=== PATIENT | male | born 1960 | race Caucasian/White ===

== ENCOUNTER → 2020-03-26 | Outpatient (CLI) | payer OTHER, BC ==
[~2020-03-26] MED LIST: CENTRUM SILVER1 EAC2 PO; CLONAZEPAM 1 MG1 M1 PO; COUMADIN 4 MG TA4 M1 PO; DULCOLAX5 MG PO; FENOFIBRATE160 MG PO; FISH OIL 1,2001 EAC4 PO; FLOMAX0.4 MG PO; HCTZ PO; LEVOTHROID150 MC1 PO; LIPITOR40 MG PO; METHADONE PO; METHADONE10 MG/1 M2 PO; MYRBETRIQ25 MG PO; NASACORT10.8 ML NASAL; NORVASC10 MG PO; OSTEO BI-FLEX1 EAC1 PO; PROBIOTIC1 EAC1 PO; PROSCAR 5MG TABL5 MG PO; SYNTHROID137 MC1 PO; TRAMADOL 50 MG50 MG PO; TRAZODONE HCL100 MG PO; VITAMIN B-625 MG PO
== END ==
LOC: LAB
PROVIDERS: ATTEND Student in an Organized Health Care Education/Training Program
DX: Z01.812 Encounter for preprocedural laboratory examination (principal); Z20.828 Contact with and (suspected) exposure to other viral communicable diseases

== ENCOUNTER 2020-03-28 07:13 | Day surgery (SDC) | payer OTHER, BC ==
[~2020-03-28] VITALS: Ht 175.3 cm; Wt 79.4 kg
--- NOTE | ~2020-03-28 | O ---
[address] [address] OPERATIVE REPORT Name: FERMIN CALDERON Room #: DEP [facility].#: [id number] Admission: 03/28/20 Attend Phys: Mikel Delgadillo MD Discharge: 03/28/20 Date of : 56 Report #: [id number] THIS REPORT FOR: cc: ZAIDA MUNOZ Physician not on staff Mikel Delgadillo MD ~ CC: Mikel Delgadillo Physician staff ZAIDA MUNOZ DATE OF SERVICE: 03/28/2020 SERVICE: Orthopedics. FACILITY: [place]. SURGEON: Mikel Delgadillo MD TITLE I COORDINATOR: Clarita Mina NP. INDICATION FOR TITLE I COORDINATOR: Extremity positioning, assistance with the arthroscope positioning. PREOPERATIVE DIAGNOSES: 1. Right hip pain. 2. Right hip ischiofemoral impingement. 3. Right hip chondromalacia. POSTOPERATIVE DIAGNOSES: 1. Right hip pain. 2. Right hip ischiofemoral impingement. 3. Right hip chondromalacia. PROCEDURES: 1. Right hip arthroscopy with chondroplasty and labral debridement. 2. Right hip ischiofemoral decompression (lesser trochanteric osteoplasty). COMPLICATIONS: None. DRAINS: None. SPECIMENS: None. FINDINGS: 1. Grade 2 chondromalacia with small area of grade 3 chondromalacia of the hip acetabulum with intact femoral head. [address] [address] OPERATIVE REPORT Name: FERMIN CALDERON Room #: DEP [facility]#: [id number] Admission: 03/28/20 Attend Phys: Mikel Delgadillo MD Discharge: 03/28/20 Date of : 56 Report #: [id number] 2. Intact labrum with limited chondral labral junction injury treated with debridement and mild synovitis. 3. Successful ischiofemoral decompression with lesser trochanter osteoplasty performed under arthroscopic visualization and fluoroscopic confirmation. HISTORY AND INDICATIONS: The patient is a 59-year-old male with a history of persistent progressive deep posterior buttock pain. He had an MRI, which showed significant edema around the quadratus femoris muscle and then narrowed space between the hamstring medially and the lesser trochanter laterally. He had a diagnostic injection into the quadratus femoris space and had successful pain relief, but unfortunately, his pain recurred and he wished to have more definitive surgical treatment. The risks, benefits, alternatives and indication of surgery discussed with him in detail. Risks include but not limited to pain, bleeding, infection, injury to nerves or blood vessels, persistent pain despite surgical intervention, failure of the surgery, need for further surgery as well as complications related to anesthesia. Despite the risks, he wished to proceed. PROCEDURE IN DETAIL: After right lower extremity was correctly identified in the preoperative holding area as the operative extremity, the patient was taken to the operating room where general anesthesia was induced without complications. He was padded appropriately. Prophylactic antibiotics were administered at appropriate time. Right hip was evaluated radiographically to identify the proximal femoral anatomy including the lesser trochanter anatomy. Right hip was prepped and draped in standard sterile fashion. Time-out procedure was performed. Traction was applied to right lower extremity under fluoroscopic visualization. An anterolateral portal was established in typical fashion and then a mid anterior portal was established as well. Limited synovectomy was then performed with the shaver. No transverse capsulotomy was required. Diagnostic arthroscopy revealed overall healthy-appearing hip joint. There was some chondromalacia as stated above, particularly anteriorly at the chondral labral junction where there was some fraying extending into the labrum as well. There were no full thickness lesions at the labrum or the cartilage. Chondroplasty and debridement was performed and after this was completed, instruments were removed and attention was turned towards the extraarticular space. Note that there were no loose bodies in the hip joint and the labrum was stable to probing as was the articular cartilage. The hip was then flexed up and using fluoroscopy, lateral portals were established x 2 with a proximal lateral and distal lateral portal under fluoroscopic assistance with the trajectory posterior to the femur and localized using a spinal needle. After the needle was placed, each was cannulated with a blunt object in order to avoid injury to neurovascular structures. The posterior femoral space was visualized and the lesser trochanter was palpated [address] [address] OPERATIVE REPORT Name: FERMIN CALDERON Room #: DEP [facility] Susu#: [id number] Admission: 03/28/20 Attend Phys: Mikel Delgadillo MD Discharge: 03/28/20 Date of : 56 Report #: [id number] and visualized on fluoroscopy. A bur was used to debride the soft tissue off of the lesser trochanter. An arthroscopic ablator was used to debride the soft tissue off of the lesser trochanter to identify the proximal and distal and lateral extents of the lesser trochanter and then the bur was used to perform a lesser trochanteric osteoplasty in the standard fashion using a cutting block technique and to position the hip through flexion and extension, internal and external rotation to continue to allow delivery of the trochanter into the appropriate plane of view. The scope was then placed in the distal lateral portal and the working portal was made more proximally. We completed the osteoplasty contouring to a flat surface along the posterior femur. Instruments were removed. The osteoplasty was evaluated. I identified some additional bone that needed to be resected and then placed the instruments back into the proximal femoral space and then completed the osteoplasty. At this point, the instruments were removed. Final radiographs were taken. The osteoplasty appeared adequate and satisfactory. At this point, the bony debris was then lavaged out of the space once more and then the instruments were removed. The portal sites were closed. Sterile dressing was applied. The patient was awakened from anesthesia and taken to recovery room in stable condition. There were no complications and all counts were recorded as correct. By: [id number] Mikel Delgadillo MD /nt
[2020-03-28 09:44] VITALS: BP 98/64
[2020-03-28 13:35] VITALS: BP 98/64
--- NOTE | 2020-03-28 13:50 | EKG ---
[facility] [place] [address] ELECTROCARDIOGRAM REPORT Name: FERMIN CALDERON Room #: [address] [place] [address] M.R.#: [id number] Admission: 03/28/20 Attend Phys: Mikel Delgadillo MD Discharge: Date of : 56 Report #: [id number] THIS REPORT FOR: cc: ZAIDA MUNOZ Physician not on staff Rasheed Rodriguez MD ~ THIS REPORT FOR: //name// [facility] Test Date: 2020-03-28 Test Time: 08:08:04 Pat Name: FERMIN CALDERON Department: Room: 150 Gender: M Sales Trainer: IRAIS : 1960 Requested By: Juancarlos Shankar Order Number: [id number] MD: Rasheed Rodriguez Measurements Intervals [place] Rate: 55 P: 27 FL: 167 QRS: -13 QRSD: 101 T: 27 QT: 441 QTc: 422 Interpretive Statements Sinus rhythm Probable left atrial enlargement Compared to ECG 03/31/2002 15:53:07 T-wave abnormality no longer present Electronically Signed On 03-28-2020 13:50:12 CDT by Rasheed Rodriguez [email or web address] <ELECTRONICALLY SIGNED> By: Rasheed Rodriguez MD 03/28/20 1350 [id number] Rasheed Rodriguez MD /EPI
== END 2020-03-28 15:00 | disposition home or self-care (01) ==
LOC: TBA 07:13 → OR 07:13 → PT 07:13 → OR 07:55 → PT 15:00
PROVIDERS: ATTEND Orthopaedic Surgery Sports Medicine
DX: M25.551 Pain in right hip (principal); M25.851 Other specified joint disorders, right hip; M94.251 Chondromalacia, right hip; M65.851 Other synovitis and tenosynovitis, right thigh; I10 Essential (primary) hypertension; E78.00 Pure hypercholesterolemia, unspecified; F41.9 Anxiety disorder, unspecified; F17.210 Nicotine dependence, cigarettes, uncomplicated; E03.9 Hypothyroidism, unspecified; Z98.890 Other specified postprocedural states; Z79.899 Other long term (current) drug therapy; Z86.718 Personal history of other venous thrombosis and embolism; Z79.01 Long term (current) use of anticoagulants; Z88.8 Allergy status to other drugs, medicaments and biological substances
CPT/HCPCS: 50010; 50101; 50386; 51320; 51538; 52304; 52313; 56524; 56527; 57092; 57103; 62110; 62900; 64039; 70005